=== PATIENT | female | born 1940 | race Caucasian/White ===

== ENCOUNTER 2016-09-07 19:08 | Emergency (ER) | payer OTHER ==
[~2016-09-07 19:08] MED LIST: ACCUPRIL20 MG PO; ALBUTEROL2.5 MG/3 M IN; AMARYL1 MG PO; ASPIRIN EC LOW81 MG PO; CATAPRES0.2 MG PO; CEFTIN500 MG PO; COUMADIN5 MG PO; DIFLUCAN100 MG PO; FLOVENT HFA110 MCG IN; ISOSORBIDE MONO30 MG PO; LANTUS SOL100 UNITS/ SC; LASIX40 MG PO; LEVAQUIN500 MG PO; LIPITOR80 MG PO; LISINOPRIL10 MG PO; METOPROLOL TAR100 MG PO; PRAMIPEXOLE D0.25 MG PO; PREDNISONE20 MG PO; PRILOSEC20 MG PO; QUINAPRIL HCL40 MG PO; SIMVASTATIN20 MG PO; TOPROL XL50 MG PO; TRAZODONE HCL50 MG PO
--- NOTE | 2016-09-07 20:01 | DIAGNOSTIC IMAGING REPORT ---
PROCEDURE: XR CHEST 2 VIEW INDICATION: FEVER TECHNIQUE: PA and lateral view. COMPARISON: Chest x-ray 02/14/2016 FINDINGS: Hyperinflation. Chronic stranding of the right lung base. Left lung is clear. Cardiovascular structures are normal. Bony thorax is unremarkable. IMPRESSION: 1. COPD 2. Mild right basilar scarring/atelectasis
--- NOTE | 2016-09-07 20:48 | ED NURSING NOTES ---
Clinical Report - Nurses [facility] [address] [place] [address] 09/07/2016 19:09 Patient: CORNELIA CARTER TRIAGE Triage time 1930 PM. Chief Complaint: SHORTNESS OF BREATH, DIFFICULTY BREATHING and WHEEZING and COUGH, FEVER and CHILLS. Alert. No acute distress. --20:20 Mahesh Pringle R.N. 19:37 09/07/16. BP: 218/98. HR: 113. RR: 30. O2 saturation: 91% on room air. Temp: 99.5 F (oral). Pain level now: cannot qualify. --20:20 Mahesh Pringle R.N. Weight: 99.7 kg estimated. Height/Length: 62 inches Estimated. BMI: 40.2. --23:14 Mahesh Pringle R.N. Medications Albuterol Sulfate Inhalation. Asmanex 120 Metered Doses Inhalation. Aspirin Oral (Tablet 81 mg) 1 tablet, daily. Atorvastatin Calcium Oral 20 mg, at bedtime. CloNIDine HCl Oral 0.2 mg, 2x a day. --20:20 Mahesh Pringle R.N. Glimepiride Oral (Tablet 4 mg) 1 tablet, qam. Isosorbide Mononitrate ER Oral (Tablet Extended Release 24 Hour 30 mg) 1 tablet, daily. Lantus Subcutaneous 30 units, 20 in the AM (and 20 in the AM). Lasix 40 mg qod. Lisinopril Oral (Tablet 20 mg) 1 tablet, at bedtime. Metoprolol Tartrate Oral 50 mg x 2 tabs, TID. Omeprazole Oral 30mg , daily. Oxygen 2L/nc at night. Pramipexole Dihydrochloride Oral 0.25 mg, 3x a day. TraZODone HCl Oral 50 mg, at bedtime. --20:20 Mahesh Pringle R.N. Allergies Bee Venom. Definite Severe(swelling) Calcium Channel Blockers. Keflex. Definite Severe(SOB, swelling) Norvasc. Definite Severe(swelling) PredniSONE. Definite Moderate(swelling) --20:20 Mahesh Pringle R.N. History Arrived by private vehicle. Historian: patient. Accompanied by family. This started yesterday. She has had fever. Treatment TOBACCO CLOTH RECLAIMER: None. SOCIAL HX: Smoker- current status unknown. FALL RISK ASSESSMENT: Fall risk assessment completed. No fall risk identified. NUTRITIONAL RISK ASSESSMENT: The nutritional risk assessment revealed no deficiencies. FUNCTIONAL ASSESSMENT: Functional assessment: no impairments noted. LEARNING NEEDS ASSESSMENT: The learning needs assessment revealed no barriers. SKIN INTEGRITY ASSESSMENT: Skin integrity risk assessment completed. No skin integrity risk identified. --20:20 Mahesh Pringle R.N. The patient has had a cough. --20:20 Mahesh Pringle R.N. PROBLEMS: Hypertensive Headache. Heart Disease. Hypomagnesemia. Dehydration. Hypotension. Angioedema. Oral Anticoagulation Therapy. Pneumonia. Pancreatitis. Immunizations. COPD - Chronic Obstructive Pulmonary Disease. Upper Extremity Pain. Diabetes Mellitus. Hypertension. Atrial Fibrillation. --20:20 Mahesh Pringle R.N. ADDITIONAL SURGERIES: Appendectomy. Hysterectomy. Partial hysterectomy. --20:20 Mahesh Pringle R.N. PHYSICAL ASSESSMENT To room via wheelchair. GENERAL / NEURO / PSYCH: Alert. Oriented X 4. Appears in no acute distress. HEENT: Mucous membranes are pink. RESPIRATORY: Severe respiratory distress. The patient can speak a few words at a time. Prominent clavicular and intercostal accessory muscle use. Prolonged expirations. Chest wall tenderness. Decreased breath sounds. Wheezing present. CVS: Normal sinus rhythm noted. Capillary refill less than 2 seconds. GI / : Abdomen soft and nontender. Bowel sounds within normal limits. SKIN: Skin is warm and dry. Normal skin turgor. --20:21 Mahesh Pringle R.N. NURSING PROGRESS NOTES 19:42 09/07/2016 Site #1 started via IV in the left forearm with an 18g angiocath; one attempt. Blood drawn: rainbow set and cultures x1. Labeled in the presence of the patient and sent to the lab. Saline lock flushed with 10 mL saline. --19:42 Mahesh Pringle R.N. 19:43 09/07/2016 Duoneb (Ipratropium-Albuterol) Neb TX Nebulizer 1 unit dose given. Given by the respiratory therapist. Allergies verified and confirmed 5 rights. --19:43 Mahesh Pringle R.N. 20:10 09/07/2016 SOLU-MEDROL (MethylPREDNISolone Sodium Succ) IVP 125 mg given over 2 minute(s) via site #1. Allergies verified and confirmed 5 rights. IV patency established. IV site checked: no pain, redness, or swelling. IV flushed thoroughly pre- and post-medication administration. IVP given by RN. --20:10 Mahesh Pringle R.N. Head of bed elevated. --20:21 Mahesh Pringle R.N. 20:43 09/07/2016 PHENERGAN-CODEINE (Promethazine-Codeine) PO Oral Suspension 10 mL given. Allergies verified and confirmed 5 rights. --20:43 Mahesh Pringle R.N. DISPOSITION / DISCHARGE <<STRICKEN ENTRY-- 23:08 09/07/16. BP: 178/88. HR: 102. RR: 22. O2 saturation: 92% on room air. Temp: 99 F (oral). Pain level now: 0/10. --23:10 Mitch Freed R.N. --END STRIKE>> Correction. --23:10 Mitch Freed R.N. 20:55 09/07/16. BP: 178/88. HR: 2. RR: 22. O2 saturation: 92% on room air. Temp: 99 F (oral). Pain level now: 0/10. --23:12 Mitch Freed R.N. Departure time: 2054. --23:12 Mitch Freed R.N. Locked/Released at 09/07/2016 23:14 by Mahesh Pringle R.N.
--- NOTE | 2016-09-07 20:48 | ED ORDER SUMMARY ---
..... Patient: CORNELIA CARTER OrderSheet [facility] VisitID: [id number] [place] [address] 75y, F Registration Date/Time: 09/07/2016 ORDER SHEET Weight: 99.7 kg (estimated) Allergies: Bee Venom, Calcium Channel Blockers, Keflex, Norvasc, PredniSONE GENERAL ORDERS: Chest 2V Urgent (19:28 09/07/2016 Ginette Caldwell) (Ack 19:29 [facility] (19:43 HOShaughnessy R.N.) Card Sorter (Continuous) (Respiratory Distress) (19:09/07/2016 Ginette Caldwell) (19:43 HOShaughnessy R.N.) CBC w Diff Urgent (19:28 09/07/2016 Ginette Caldwell) (Ack 19:29 [facility] (19:43 HOShaughnessy R.N.) BMP Urgent (19:09/07/2016 Ginette Caldwell) (Ack 19:29 [facility]) (19:43 HOShaughnessy R.N.) Pulse oximeter (19:28 09/07/2016 Ginette Caldwell) (19:43 HOShaughnessy R.N.) Rapid Influenza Screen (Nasal Pharyngeal) (mucus) Urgent (19:29 09/07/2016 Ginette Caldwell) (Ack 19:32 [facility]) (20:09 HOShaughnessy R.N.) RSV Rapid Screen (Nasal Pharyngeal) (mucus) Urgent (19:30 09/07/2016 Ginette Caldwell) (Ack 19:32 [facility]) (20:09 HOShaughnessy R.N.) PCT (Procalcitonin) Urgent (19:30 09/07/2016 Ginette Caldwell) (Ack 19:32 [facility]) (19:43 HOShaughnessy R.N.) Lactate, Serum Urgent (19:30 09/07/2016 Ginette Caldwell) (Ack 19:32 [facility]) (19:43 HOShaughnessy R.N.) MEDICATION ORDERS: DuoNeb Neb Tx 1 unit dose (NOW) (19:28 09/07/2016 Ginette Caldwell) (19:43 Leonides R.N.) Phenergan-Codeine PO 10 mL (HIGH ALERT MEDICATION, NOW) (20:38 09/07/2016 Ginette Caldwell) (20:43 Leonides R.N.) IV FLUIDS: Solu-MEDROL IV 125 mg (NOW) (19:28 09/07/2016 Ginette Caldwell) (20:10 HOScedric R.N.) IV Saline Lock (19:28 09/07/2016 Ginette Caldwell) (19:42 Leonides R.N.) ORDER SHEET NOTES: [Electronically signed by Mahesh Pringle R.N. (23:14 09/07/2016)] [Electronically signed by Kingsley Danielle Dr. (03:53 09/09/2016)] [Electronically locked/signed by Mahesh Pringle R.N. (23:14 09/07/2016)]
--- NOTE | 2016-09-07 20:48 | ED ORDER SUMMARY ---
..... Patient: CORNELIA CARTER OrderSheet [facility] VisitID: [id number] [place] [address] 75y, F Registration Date/Time: 09/07/2016 ORDER SHEET Weight: 99.7 kg (estimated) Allergies: Bee Venom, Calcium Channel Blockers, Keflex, Norvasc, PredniSONE GENERAL ORDERS: Chest 2V Urgent (19:28 09/07/2016 Ginette Caldwell) (Ack 19:[address] [facility] ER Tech1) (19:43 HOShaughnessy R.N.) Flight Attendant/Inflight Supervisor (Continuous) (Respiratory Distress) (19:09/07/2016 Ginette Caldwell) (19:43 HOShaughnessy R.N.) CBC w Diff Urgent (19:28 09/07/2016 Ginette Caldwell) (Ack 19:[address] [facility] ER Tech1) (19:43 HOShaughnessy R.N.) BMP Urgent (19:09/07/2016 Ginette Caldwell) (Ack 19:[address] [facility] ER Tech1) (19:43 HOShaughnessy R.N.) Pulse oximeter (19:28 09/07/2016 Ginette Caldwell) (19:43 HOShaughnessy R.N.) Rapid Influenza Screen (Nasal Pharyngeal) (mucus) Urgent (19:29 09/07/2016 Ginette Caldwell) (Ack 19:[address] [facility] ER Tech1) (20:09 HOShaughnessy R.N.) RSV Rapid Screen (Nasal Pharyngeal) (mucus) Urgent (19:30 09/07/2016 Ginette Caldwell) (Ack 19:[address] [facility] ER Tech1) (20:09 HOShaughnessy R.N.) PCT (Procalcitonin) Urgent (19:30 09/07/2016 Ginette Caldwell) (Ack 19:[address] [facility] ER Tech1) (19:43 HOShaughnessy R.N.) Lactate, Serum Urgent (19:30 09/07/2016 Ginette Caldwell) (Ack 19:[address] [facility] ER Tech1) (19:43 HOShaughnessy R.N.) MEDICATION ORDERS: DuoNeb Neb Tx 1 unit dose (NOW) (19:28 09/07/2016 Ginette Caldwell) (19:43 Leonides R.N.) Phenergan-Codeine PO 10 mL (HIGH ALERT MEDICATION, NOW) (20:38 09/07/2016 Ginette Caldwell) (20:43 Leonides R.N.) IV FLUIDS: Solu-MEDROL IV 125 mg (NOW) (19:28 09/07/2016 Ginette Caldwell) (20:10 HOScedric R.N.) IV Saline Lock (19:28 09/07/2016 Ginette Caldwell) (19:42 Leonides R.N.) ORDER SHEET NOTES: [Electronically signed by Mahesh Pringle R.N. (23:14 09/07/2016)] [Electronically signed by Kingsley Danielle Dr. (03:53 09/09/2016)] [Electronically locked/signed by Mahesh Pringle R.N. (23:14 09/07/2016)]
--- NOTE | 2016-09-07 20:48 | ED CLINICAL REPORT ---
Clinical Report - Physicians/Mid Levels [facility] [address] [place] [address] 09/07/2016 19:09 Patient: CORNELIA CARTER Arrived- By private vehicle. Historian- patient. HISTORY OF PRESENT ILLNESS Chief Complaint: COUGH. This started Past few days and is still present (worsening). It was abrupt in onset and has been constant but is not gone now. The illness is described as moderate. The patient has had sputum production, a cough, difficulty breathing, nasal congestion and fever. She has had chills, muscle aches and a nasal discharge. Additional history - The patient has had contact with a sick individual. Similar symptoms previously: None. Recent medical care: Not recently seen/assessed. REVIEW OF SYSTEMS All systems otherwise negative, except as recorded above. PAST HISTORY See nurses notes. Medications: Glimepiride Oral (Tablet 4 mg) 1 tablet, qam. Isosorbide Mononitrate ER Oral (Tablet Extended Release 24 Hour 30 mg) 1 tablet, daily. Lantus Subcutaneous 30 units, 20 in the AM (and 20 in the AM). Lasix 40 mg qod. Lisinopril Oral (Tablet 20 mg) 1 tablet, at bedtime. Metoprolol Tartrate Oral 50 mg x 2 tabs, TID. Omeprazole Oral 30mg , daily. Oxygen 2L/nc at night. Pramipexole Dihydrochloride Oral 0.25 mg, 3x a day. TraZODone HCl Oral 50 mg, at bedtime. Albuterol Sulfate Inhalation. Asmanex 120 Metered Doses Inhalation. Aspirin Oral (Tablet 81 mg) 1 tablet, daily. Atorvastatin Calcium Oral 20 mg, at bedtime. CloNIDine HCl Oral 0.2 mg, 2x a day. Allergies: Bee Venom. Definite Severe(swelling) Calcium Channel Blockers. Keflex. Definite Severe(SOB, swelling) Norvasc. Definite Severe(swelling) PredniSONE. Definite Moderate(swelling). SOCIAL HISTORY Former smoker. No alcohol use or drug use. No recent travel. Is a local resident. ADDITIONAL NOTES The nursing notes have been reviewed. PHYSICAL EXAM Vital Signs: 09/07/2016 19:37 BP: 218/98. HR: 113. RR: 30. O2 saturation: 91%. Temp: 99.5 F. Blood pressure normal. Oxygen saturation normal. Appearance: Alert. Patient in mild distress. (nontoxic). Eyes: Pupils equal, round and reactive to light. Eyes normal inspection. ENT: Ears normal. Nose normal. Pharynx normal. Uvula midline. Neck: Normal inspection. Neck supple. CVS: Normal heart rate and rhythm. Heart sounds normal. Pulses normal. Respiratory: No respiratory distress. Breath sounds normal. No rales, rhonchi, wheezes or stridor. (frequent coughing and signs of upper airway congestion). Abdomen: Soft and nontender. No organomegaly. Back: Normal inspection. Skin: Skin warm and dry. Normal skin color. No rash. Normal skin turgor. Extremities: Extremities exhibit normal ROM. No lower extremity edema. LABS, X-RAYS, AND EKG Chest X-ray: No acute disease. Normal lung markings present. No infiltrate. Views: PA and lateral. The X-rays were independently viewed by me and interpreted contemporaneously by me. Laboratory Tests: CBC w Diff: (DIDI: 09/07/2016 19:34) ( MsgRcvd 09/07/2016 20:01) Final results Test Result Flag Units (Reference) WHITE BLOOD COUNT 8.6 K/uL (4.5-11.5) RED BLOOD COUNT 4.04 M/uL (4.00-5.20) HEMOGLOBIN 10.7 L gm/dL (12.0-16.0) HEMATOCRIT 33.7 L % (36.0-46.0) MEAN CELL VOLUME 84 fL (80-100) MEAN CORPUSCULAR HGB 26 pg (26-34) MEAN CORPUSCULAR HGB CONC 32 g/dL (31-37) RED CELL DISTRIBUTION WIDTH 16.6 H % (11.6-14.8) PLATELET COUNT 173 K/uL (150-400) NEUTROPHIL % 77.9 H % (50-75) LYMPH % 14.6 L % (25-40) MONO % 6.9 % (3-14) EOSINOPHIL % 0.5 % (0-4) BASOPHIL % 0.1 % (0-2) Lactate, Serum: (DIDI: 09/07/2016 19:34) ( MsgRcvd 09/07/2016 20:19) Final results Test Result Flag Units (Reference) LACTIC ACID 1.2 mmol/L (0.4-2.0) [id number]: (DIDI: 09/07/2016 19:34) ( MsgRcvd 09/07/2016 20:27) Final results Test Result Flag Units (Reference) PROCALCITONIN <0.5 ng/mL (0-0.5) PCT Concentration: Interpretation : Risk/option for action PCT <=0.5 ng/mL : Systemic : Low risk forinfection(sepsis): progression to severeis not likely. : systemic infection.Local bacterial : CAUTION-PCT levelsinfection is : below 0.5 ng/mL do notpossible. : exclude an infection,because localizedinfections (withoutsystemic signs) may beassociated with suchlow levels. If PCT ismeasured very earlyafter a bacterialchallenge (usually <6hours), these valuesmay still be low. Inthis case PCT shouldbe re-assessed 6-24hours later. PCT >0.5 and : Systemic infection: Moderate risk for<= 2 ng/mL : (sepsis) is : progression to severepossible, but : systemic infection.other conditions : The patient should beare known to : closely monitoredelevate PCT. : both clinically andby re-assessing PCTwithin 6-24 hours. PCT > 2 ng/mL : Systemic infection: High risk for(sepsis) is likely: progression to severeunless other : systemic infection.causes are known. : PCT >= 10 ng/mL : Important systemic: High likelihood ofinflammatory : severe sepsis orresponse, almost : septic shock.exclusively due to:severe bacterial :sepsis or septic :shock. : BMP: (DIDI: 09/07/2016 19:34) ( MsgRcvd 09/07/2016 20:08) Final results Test Result Flag Units (Reference) GLUCOSE 216 H mg/dL (70-110) BUN 28 H mg/dL (7-18) CREATININE 1.6 H mg/dL (0.6-1.3) Estimated GFR 33.31 mL/min Estimated GFR- 40.37 mL/min Note: Persistent reduction over 3 months in eGFR<60 mL/min/1.73 m2 defines CKD. Patients with eGFR values>=60 mL/min/1.73 m2 may also have CKD if evidence ofpersistent proteinuria. Additional information may be foundat www.kidney.org. SODIUM 138 mmol/L (136-145) POTASSIUM 3.7 mmol/L (3.5-5.1) CHLORIDE 103 mmol/L (98-107) CARBON DIOXIDE 25 mmol/L (21-32) CALCIUM 8.5 mg/dL (8.5-10.1) RSV Rapid Screen: (DIDI: 09/07/2016 20:07) ( MsgRcvd 09/07/2016 20:32) Final results SPECIMEN DESCRIPTION: MUCUS Test Result Flag Units (Reference) RSV RAPID TEST DATE: 09/07/16 NEGATIVE SCREEN: NEGATIVE If Rapid RSV test is Negative but RSV is still suspected, a confirmatory RSV DFA can be requested. RAPID INFLUENZA SCREEN CALLED TO: Alex HASTINGS -- DATE: 09/07/16 INFLUENZA A: POSITIVE SCREEN FOR INFLUENZA A INFLUENZA B: NEGATIVE SCREEN FOR INFLUENZA B POSITIVE RAPID INFLUENZA "A". . PROGRESS AND PROCEDURES Course of Care: the patient is a pleasant 75-year-old female with past medical history significant for prior smoking history. Patient is coughing frequently and in a mild amount of distress. Patient appears nontoxic. Patient will be evaluated with laboratory studies as well as chest x-ray to evaluate for signs of pneumonia or any metabolic derangements from patient's illness. Viral swabs have also been ordered from triage. Patient is currently agreeable to the treatment plan. We'll provide patient with breathing treatment at this time asthe patient states that this is helped in the past. Breathing treatment as provided, patient reported significant improvement with her breathing. Viral swabs had returned positive for influenza type A. I discussion with patient in regards to symptoms. Patient reports that primarily she is concerned about the coughing. Reports that this is bothering her and she is unable to get any rest with the frequency of her cough. Have provided patient cough medication in the emergency department. Symptoms significantly improved after the medication was provided. Patient is stable for outpatient management. Patient has not been hypoxic here in the emergency department while on room air. Patient does not have any signs of consolidation on chest x-ray. No other abnormalities noted on patient's workup. Patient is a good outpatient candidate. Discussed with patient workup, diagnosis, home care, follow-up, and return precautions. All questions answered. The patient expressed understanding of these instructions and was agreeable to them. Disposition: Discharged. Condition: good. CLINICAL IMPRESSION Acute viral (influenza A) bronchitis. Acute exacerbation of COPD. INSTRUCTIONS Warnings: GENERAL WARNINGS: Return or contact your physician immediately if your condition worsens or changes unexpectedly, if not improving as expected, or if other problems arise. Specifically return if pain, vomiting, bleeding, breathing difficulty or fever. Your Current Medications: CONTINUE TAKING THE FOLLOWING MEDICATIONS: Albuterol Sulfate Inhalation. Asmanex 120 Metered Doses Inhalation. Aspirin Oral : Tablet 81 mg, 1 tablet daily. Atorvastatin Calcium Oral : 20 mg at bedtime. CloNIDine HCl Oral : 0.2 mg 2x a day. Glimepiride Oral : Tablet 4 mg, 1 tablet qam. Isosorbide Mononitrate ER Oral : Tablet Extended Release 24 Hour 30 mg, 1 tablet daily. Lantus Subcutaneous : 30 units 20 in the AM, and 20 in the AM. Lasix 40 mg qod*. Lisinopril Oral : Tablet 20 mg, 1 tablet at bedtime. Metoprolol Tartrate Oral : 50 mg x 2 tabs, TID. Omeprazole Oral : 30mg daily. Oxygen 2L/nc at night*. Pramipexole Dihydrochloride Oral : 0.25 mg 3x a day. TraZODone HCl Oral : 50 mg at bedtime. Prescription Medications: Albuterol HFA oral inhaler: inhale 1-2 puffs every 4 hours as needed for wheezing, difficulty breathing or shortness of breath. No refill. Tamiflu 75 mg: take 1 capsule orally every 12 hours for 5 days. No refill. Substitution is permissible. Phenergan w/ Codeine 10mg / 6.25mg per 5 mL: take 1-2 teaspoons every 6 hours as needed for cough. Dispense sixty (60) mL. No refill. Substitution is permissible. Prednisone 50 mg: take 1 orally every day for 5 days. Dispense five (5). No refills. Follow-up: Return to the emergency department as needed. Follow up with your doctor in two days. Reason for referral: recheck today's concerns. Summary of care provided to patient via paper. Screening today revealed the patient's blood pressure to be in the hypertensive range. Blood pressure screening was not performed during this visit because the patient has an active diagnosis of hypertension. The patient should follow up with a primary care provider for blood pressure management. Understanding of the discharge instructions verbalized by patient. (Electronically signed by Kingsley Danielle Dr. 09/09/2016 3:53)
--- NOTE | 2016-09-09 03:53 | ED MAR SUMMARY ---
..... Medication Administration Record [facility] [address] [place] [address] Patient: CORNELIA CARTER Visit ID: [id number] 75y, F Weight: 99.7 kg Height/Length: 62 in BMI: 40.2 ALLERGIES: Bee Venom, Calcium Channel Blockers, Keflex, Norvasc, PredniSONE Given 19:09/07/2016 Mahesh Pringle RLillian Medication Administered: DUONEB [NEB TX] (IPRATROPIUM-ALBUTEROL), Dose: 1 unit dose Nebulizer Neb TX. Medication Ordered: DuoNeb Neb Tx 1 unit dose (NOW). Given :09/07/2016 Mahesh Pringle RVincenzoNVincenzo Medication Administered: SOLU-MEDROL [IVP] (METHYLPREDNISOLONE SODIUM SUCC), Dose: 125 mg IVP over 2 minute(s), Site: #1 left forearm. Medication Ordered: Solu-MEDROL IV 125 mg (NOW). Given :09/07/2016 Mahesh Pringle, RVincenzoNVincenzo Medication Administered: PHENERGAN-CODEINE [PO] (PROMETHAZINE-CODEINE), Dose: 10 mL Oral Suspension PO. Medication Ordered: Phenergan-Codeine PO 10 mL (HIGH ALERT MEDICATION, NOW).
--- NOTE | 2016-09-09 03:53 | ED MED RECONCILIATION SUMMARY ---
Patient: CORNELIA CARTER Medication Reconciliation Report [facility] VisitID: [id number] [place] [address] 75y, F Registration Date/Time: 09/07/2016 Weight: 99.7 kg Height/Length: 62 in. BMI: 40.2 ALLERGIES: Bee Venom, Calcium Channel Blockers, Keflex, Norvasc, PredniSONE The patient's Home Medications are listed below: CONTINUE TAKING THE FOLLOWING MEDICATIONS: Albuterol Sulfate Inhalation Asmanex 120 Metered Doses Inhalation Aspirin Oral (81 mg) 1 tablet, daily Atorvastatin Calcium Oral 20 mg, at bedtime CloNIDine HCl Oral 0.2 mg, 2x a day Glimepiride Oral (4 mg) 1 tablet, qam Isosorbide Mononitrate ER Oral (30 mg) 1 tablet, daily Lantus Subcutaneous 30 units, 20 in the AM, and 20 in the AM Lasix 40 mg qod Lisinopril Oral (20 mg) 1 tablet, at bedtime Metoprolol Tartrate Oral 50 mg x 2 tabs, TID Omeprazole Oral 30mg , daily Oxygen 2L/nc at night Pramipexole Dihydrochloride Oral 0.25 mg, 3x a day TraZODone HCl Oral 50 mg, at bedtime The source(s) of the original Home Medication information: Not obtained. The following Medications were given to the patient in the Emergency Department: Duoneb [Neb Tx] Neb TX 1 unit dose, administered: 09/07/2016 7:43:00 PM SOLU-MEDROL [IVP] IVP 125 mg, administered: 09/07/2016 8:10:00 PM PHENERGAN-CODEINE [PO] PO 10 mL, administered: 09/07/2016 8:43:00 PM The following Medications were prescribed to the patient: Albuterol HFA oral inhaler: inhale 1-2 puffs every 4 hours as needed for wheezing, difficulty breathing or shortness of breath. No refill. -- Kingsley Danielle Dr. Tamiflu 75 mg: take 1 capsule orally every 12 hours for 5 days. No refill. Substitution is permissible. -- Kingsley Danielle Dr. Phenergan w/ Codeine 10mg / 6.25mg per 5 mL: take 1-2 teaspoons every 6 hours as needed for cough. Dispense sixty (60) mL. No refill. Substitution is permissible. -- Kingsley Danielle Dr. Prednisone 50 mg: take 1 orally every day for 5 days. Dispense five (5). No refills. -- Kingsley Danielle Dr.
--- NOTE | 2016-09-09 03:53 | ED DISCHARGE INSTRUCTIONS ---
Patient: CORNELIA CARTER General Instructions [facility] VisitID: [id number] [place] [address] 75y, F Registration Date/Time: 09/07/2016 Acute viral (influenza A) bronchitis. Acute exacerbation of COPD. INSTRUCTIONS Warnings: GENERAL WARNINGS: Return or contact your physician immediately if your condition worsens or changes unexpectedly, if not improving as expected, or if other problems arise. Specifically return if pain, vomiting, bleeding, breathing difficulty or fever. Your Current Medications: CONTINUE TAKING THE FOLLOWING MEDICATIONS: Albuterol Sulfate Inhalation. Asmanex 120 Metered Doses Inhalation. Aspirin Oral : Tablet 81 mg, 1 tablet daily. Atorvastatin Calcium Oral : 20 mg at bedtime. CloNIDine HCl Oral : 0.2 mg 2x a day. Glimepiride Oral : Tablet 4 mg, 1 tablet qam. Isosorbide Mononitrate ER Oral : Tablet Extended Release 24 Hour 30 mg, 1 tablet daily. Lantus Subcutaneous : 30 units 20 in the AM, and 20 in the AM. Lasix 40 mg qod*. Lisinopril Oral : Tablet 20 mg, 1 tablet at bedtime. Metoprolol Tartrate Oral : 50 mg x 2 tabs, TID. Omeprazole Oral : 30mg daily. Oxygen 2L/nc at night*. Pramipexole Dihydrochloride Oral : 0.25 mg 3x a day. TraZODone HCl Oral : 50 mg at bedtime. Prescription Medications: Albuterol HFA oral inhaler: inhale 1-2 puffs every 4 hours as needed for wheezing, difficulty breathing or shortness of breath. No refill. Tamiflu 75 mg: take 1 capsule orally every 12 hours for 5 days. No refill. Substitution is permissible. Phenergan w/ Codeine 10mg / 6.25mg per 5 mL: take 1-2 teaspoons every 6 hours as needed for cough. Dispense sixty (60) mL. No refill. Substitution is permissible. Prednisone 50 mg: take 1 orally every day for 5 days. Dispense five (5). No refills. Follow-up: Return to the emergency department as needed. Follow up with your doctor in two days. Reason for referral: recheck today's concerns. Summary of care provided to patient via paper. Screening today revealed the patient's blood pressure to be in the hypertensive range. Blood pressure screening was not performed during this visit because the patient has an active diagnosis of hypertension. The patient should follow up with a primary care provider for blood pressure management. Understanding of the discharge instructions verbalized by patient. ADDITIONAL INFORMATION Bronchitis, Viral (Adult: No Abx) You have a viral bronchitis. This illness is contagious during the first few days and is spread through the air by coughing and sneezing, or by direct contact (touching the sick person and then touching your own eyes, nose, or mouth). Most viral illnesses resolve within 10-14 days with rest and simple home remedies, although they may sometimes last for several weeks. Antibiotics will not kill a virus and are generally not prescribed for this condition. Home Care: If symptoms are severe, rest at home for the first 2-3 days. When resuming activity, don't let yourself become overly tired. Do not smoke and avoid the smoke of others. You may use acetaminophen (Tylenol) or ibuprofen (Motrin, Advil) to control fever or pain, unless another pain medicine was prescribed. [NOTE: If you have chronic liver or kidney disease or ever had a stomach ulcer or GI bleeding, talk with your doctor before using these medicines.] (Aspirin should never be used in anyone under 18 years of age who is ill with a fever. It may cause severe liver damage.) Your appetite may be poor so a light diet is fine. Avoid dehydration by drinking 6-8 glasses of fluids per day (water, sport drinks such as Gatorade, juices, tea, soup, etc.). Extra fluids will help loosen secretions in the nose and lung. Bgxc-[id number]-siboyvj cold medicines will not shorten the length of the illness, but may be helpful for cough (Robitussin DM), sore throat (Chloraseptic lozenges or spray), nasal and sinus congestion (Actifed or Sudafed). [NOTE: Do not use decongestants if you have high blood pressure.] Follow Up with your doctor or as directed by our staff if you are not improving over the next week. NOTE: If you are age 65 or older, or if you have chronic asthma or COPD, we recommend a PNEUMOCOCCAL VACCINATION every five years and a yearly INFLUENZAVACCINATION (FLU-SHOT) every . Ask your doctor about this. If you had an X-ray, a radiologist will review it. You will be notified of any new findings that may affect your care.] Get Prompt Medical Attention if any of the following occur: Fever over 100.4F (38.0C) for more than three days Trouble breathing, wheezing or pain with breathing Coughing up blood or increased amounts of colored sputum Weakness, drowsiness, headache, facial pain, ear pain or a stiff neck COPD Flare Both emphysema and chronic bronchitis are forms of chronic obstructive pulmonary disease (COPD). It is most often caused by many years of smoking tobacco. Many things can make your lung disease suddenly get worse. These causes include the common cold, pneumonia, acute bronchitis, missing doses of your regular breathing medicines, or being around smoke, dust, or other air pollutants. A COPD flare may last 7 to 14 days. Your doctor may prescribe medicineto relax your airways and prevent wheezing. Your doctor may also prescribe antibiotics if he or she thinks you havea bacterial infection. Prednisone can helpease inflammation in a severe attack. Home care Here are things you can do at home: Drink lots of water or other fluids (at least 10 glasses a day) during an attack. This will loosen lung secretions and make it easier to breathe. If you have heart or kidney disease, check with your doctor before you drink extra amounts of fluids. Take prescribed medicine exactly at the times advised. If you have a hand-held inhaler or aerosol breathing medicine, don't use it more than once every 4 hours, unless your doctor tells you to. If you were givenan antibiotic or prednisone, take all of the medicine even if you are feeling better after a few days. Don't smoke. Avoid being aroundthe smoke of others. If you were given an inhaler, use it exactly as directed. If you need to use it more often than prescribed, your condition may be getting worse. Call your doctor. Follow-up care Follow up with your health care provider.If you are 65 or older or have chronic asthma or COPD, you should get a single dose of the pneumococcal vaccine and aflu shot each year. You may need a second dose of the pneumococcal vaccine if you had the first dose at a younger age. Your health care provider will let you know if you need a second dose. For all other people, the usual dose for the pneumococcal vaccine is 1 or 2 shots. Yourprovider can discuss this with you. When to seek medical care Get prompt medical attention ifany of these occur: Increased wheezing or shortness of breath Need to use your inhalers more often than usual without relief Fever of 100.4F(38C) or higher, or as directed by your health care provider Coughing up lots of dark-colored or bloody sputum (mucus) Chest pain with each breath You do not start to improve within 24 hours Albuterol Sulfate Pressurized inhalation, suspension What is this medicine? ALBUTEROL (al BYOO ter ole) is a bronchodilator. It helps open up the airways in your lungs to make it easier to breathe. This medicine is used to treat and to prevent bronchospasm. How should I use this medicine? This medicine is for inhalation through the mouth. Follow the directions on your prescription label. Take your medicine at regular intervals. Do not use more often than directed. Make sure that you are using your inhaler correctly. Ask you doctor or health care provider if you have any questions. Talk to your police dispatcher regarding the use of this medicine in children. Special care may be needed. What side effects may I notice from receiving this medicine? Side effects that you should report to your doctor or health family member caretaker as soon as possible: allergic reactions like skin rash, itching or hives, swelling of the face, lips, or tongue breathing problems chest pain feeling faint or lightheaded, falls high blood pressure irregular heartbeat fever muscle cramps or weakness pain, tingling, numbness in the hands or feet vomiting Side effects that usually do not require medical attention (report to your doctor or health family member caretaker if they continue or are bothersome): cough difficulty sleeping headache nervousness or trembling stomach upset stuffy or runny nose throat irritation unusual taste What may interact with this medicine? anti-infectives like chloroquine and pentamidine caffeine cisapride diuretics medicines for colds medicines for depression or for emotional or psychotic conditions medicines for weight loss including some herbal products methadone some antibiotics like clarithromycin, erythromycin, levofloxacin, and linezolid some heart medicines steroid hormones like dexamethasone, cortisone, hydrocortisone theophylline thyroid hormones What if I miss a dose? If you miss a dose, use it as soon as you can. If it is almost time for your next dose, use only that dose. Do not use double or extra doses. Where should I keep my medicine? Keep out of the reach of children. Store at room temperature between 15 and 30 degrees C (59 and 86 degrees F). The contents are under pressure and may burst when exposed to heat or flame. Do not freeze. This medicine does not work as well if it is too cold. Throw away any unused medicine after the expiration date. Inhalers need to be thrown away after the labeled number of puffs have been used or by the expiration date; whichever comes first. Ventolin HFA should be thrown away 12 months after removing from foil pouch. Check the instructions that come with your medicine. What should I tell my health care provider before I take this medicine? They need to know if you have any of the following conditions: diabetes heart disease or irregular heartbeat high blood pressure pheochromocytoma seizures thyroid disease an unusual or allergic reaction to albuterol, levalbuterol, sulfites, other medicines, foods, dyes, or preservatives or trying to get breast-feeding What should I watch for while using this medicine? Tell your doctor or health family member caretaker if your symptoms do not improve. Do not use extra albuterol. If your asthma or bronchitis gets worse while you are using this medicine, call your doctor right away. If your mouth gets dry try chewing sugarless gum or sucking hard candy. Drink water as directed. Oseltamivir Phosphate Oral capsule What is this medicine? OSELTAMIVIR (os el GUTIERREZ i vir) is an antiviral medicine. It is used to prevent and to treat some kinds of influenza or the flu. It will not work for colds or other viral infections. How should I use this medicine? Take this medicine by mouth with a glass of water. Follow the directions on the prescription label. Start this medicine at the first sign of flu symptoms. You can take it with or without food. If it upsets your stomach, take it with food. Take your medicine at regular intervals. Do not take your medicine more often than directed. Take all of your medicine as directed even if you think you are better. Do not skip doses or stop your medicine early. Talk to your police dispatcher regarding the use of this medicine in children. While this drug may be prescribed for children as young as 14 days for selected conditions, precautions do apply. What side effects may I notice from receiving this medicine? Side effects that you should report to your doctor or health family member caretaker as soon as possible: allergic reactions like skin rash, itching or hives, swelling of the face, lips, or tongue anxiety, confusion, unusual behavior breathing problems hallucination, loss of contact with reality redness, blistering, peeling or loosening of the skin, including inside the mouth seizures Side effects that usually do not require medical attention (report to your doctor or health family member caretaker if they continue or are bothersome): cough diarrhea dizziness headache nausea, vomiting stomach pain What may interact with this medicine? Interactions are not expected. What if I miss a dose? If you miss a dose, take it as soon as you remember. If it is almost time for your next dose (within 2 hours), take only that dose. Do not take double or extra doses. Where should I keep my medicine? Keep out of the reach of children. Store at room temperature between 15 and 30 degrees C (59 and 86 degrees F). Throw away any unused medicine after the expiration date. What should I tell my health care provider before I take this medicine? They need to know if you have any of the following conditions: heart disease immune system problems kidney disease liver disease lung disease an unusual or allergic reaction to oseltamivir, other medicines, foods, dyes, or preservatives or trying to get breast-feeding What should I watch for while using this medicine? Visit your doctor or health family member caretaker for regular check ups. Tell your doctor if your symptoms do not start to get better or if they get worse. If you have the flu, you may be at an increased risk of developing seizures, confusion, or abnormal behavior. This occurs early in the illness, and more frequently in children and teens. These events are not common, but may result in accidental injury to the patient. Families and caregivers of patients should watch for signs of unusual behavior and contact a doctor or health family member caretaker right away if the patient shows signs of unusual behavior. This medicine is not a substitute for the flu shot. Talk to your doctor each year about an annual flu shot. Prednisone Oral tablet What is this medicine? PREDNISONE (PRED ni sone) is a corticosteroid. It is commonly used to treat inflammation of the skin, joints, lungs, and other organs. Common conditions treated include asthma, allergies, and arthritis. It is also used for other conditions, such as blood disorders and diseases of the adrenal glands. How should I use this medicine? Take this medicine by mouth with a glass of water. Follow the directions on the prescription label. Take this medicine with food. If you are taking this medicine once a day, take it in the morning. Do not take more medicine than you are told to take. Do not suddenly stop taking your medicine because you may develop a severe reaction. Your doctor will tell you how much medicine to take. If your doctor wants you to stop the medicine, the dose may be slowly lowered over time to avoid any side effects. Talk to your police dispatcher regarding the use of this medicine in children. Special care may be needed. What side effects may I notice from receiving this medicine? Side effects that you should report to your doctor or health family member caretaker as soon as possible: allergic reactions like skin rash, itching or hives, swelling of the face, lips, or tongue changes in emotions or moods changes in vision depressed mood eye pain fever or chills, cough, sore throat, pain or difficulty passing urine increased thirst swelling of ankles, feet Side effects that usually do not require medical attention (report to your doctor or health family member caretaker if they continue or are bothersome): confusion, excitement, restlessness headache nausea, vomiting skin problems, acne, thin and shiny skin trouble sleeping weight gain What may interact with this medicine? Do not take this medicine with any of the following medications: metyrapone mifepristone This medicine may also interact with the following medications: aminoglutethimide amphotericin B aspirin and aspirin-like medicines barbiturates certain medicines for diabetes, like glipizide or glyburide cholestyramine cholinesterase inhibitors cyclosporine digoxin diuretics ephedrine female hormones, like estrogens and control pills isoniazid ketoconazole NSAIDS, medicines for pain and inflammation, like ibuprofen or naproxen phenytoin rifampin toxoids vaccines warfarin What if I miss a dose? If you miss a dose, take it as soon as you can. If it is almost time for your next dose, talk to your doctor or health family member caretaker. You may need to miss a dose or take an extra dose. Do not take double or extra doses without advice. Where should I keep my medicine? Keep out of the reach of children. Store at room temperature between 15 and 30 degrees C (59 and 86 degrees F). Protect from light. Keep container tightly closed. Throw away any unused medicine after the expiration date. What should I tell my health care provider before I take this medicine? They need to know if you have any of these conditions: Payam's syndrome diabetes glaucoma heart disease high blood pressure infection (especially a virus infection such as chickenpox, cold sores, or herpes) kidney disease liver disease mental illness myasthenia gravis osteoporosis seizures stomach or intestine problems thyroid disease an unusual or allergic reaction to lactose, prednisone, other medicines, foods, dyes, or preservatives or trying to get breast-feeding What should I watch for while using this medicine? Visit your doctor or health family member caretaker for regular checks on your progress. If you are taking this medicine over a prolonged period, carry an identification card with your name and address, the type and dose of your medicine, and your doctor's name and address. This medicine may increase your risk of getting an infection. Tell your doctor or health family member caretaker if you are around anyone with measles or chickenpox, or if you develop sores or blisters that do not heal properly. If you are going to have surgery, tell your doctor or health family member caretaker that you have taken this medicine within the last twelve months. Ask your doctor or health family member caretaker about your diet. You may need to lower the amount of salt you eat. This medicine may affect blood sugar levels. If you have diabetes, check with your doctor or health family member caretaker before you change your diet or the dose of your diabetic medicine. You have been given the following additional information: Bronchitis, No Antibiotic (Adult) COPD Flare Albuterol Sulfate Pressurized inhalation, suspension Oseltamivir Phosphate Oral capsule Prednisone Oral tablet (Electronically signed by Kingsley Danielle Dr. 09/09/2016 3:53)
--- NOTE | 2016-09-09 03:53 | ED MED RECONCILIATION SUMMARY ---
Patient: CORNELIA CARTER Medication Reconciliation Report [facility] VisitID: [id number] [place] [address] 75y, F Registration Date/Time: 09/07/2016 Weight: 99.7 kg Height/Length: 62 in. BMI: 40.2 ALLERGIES: Bee Venom, Calcium Channel Blockers, Keflex, Norvasc, PredniSONE The patient's Home Medications are listed below: CONTINUE TAKING THE FOLLOWING MEDICATIONS: Albuterol Sulfate Inhalation Asmanex 120 Metered Doses Inhalation Aspirin Oral (81 mg) 1 tablet, daily Atorvastatin Calcium Oral 20 mg, at bedtime CloNIDine HCl Oral 0.2 mg, 2x a day Glimepiride Oral (4 mg) 1 tablet, qam Isosorbide Mononitrate ER Oral (30 mg) 1 tablet, daily Lantus Subcutaneous 30 units, 20 in the AM, and 20 in the AM Lasix 40 mg qod Lisinopril Oral (20 mg) 1 tablet, at bedtime Metoprolol Tartrate Oral 50 mg x 2 tabs, TID Omeprazole Oral 30mg , daily Oxygen 2L/nc at night Pramipexole Dihydrochloride Oral 0.25 mg, 3x a day TraZODone HCl Oral 50 mg, at bedtime The source(s) of the original Home Medication information: Not obtained. The following Medications were given to the patient in the Emergency Department: Duoneb [Neb Tx] Neb TX 1 unit dose, administered: 09/07/2016 7:43:00 PM SOLU-MEDROL [IVP] IVP 125 mg, administered: 09/07/2016 8:10:00 PM PHENERGAN-CODEINE [PO] PO 10 mL, administered: 09/07/2016 8:43:00 PM The following Medications were prescribed to the patient: Albuterol HFA oral inhaler: inhale 1-2 puffs every 4 hours as needed for wheezing, difficulty breathing or shortness of breath. No refill. -- Kingsley Danielle Dr. Tamiflu 75 mg: take 1 capsule orally every 12 hours for 5 days. No refill. Substitution is permissible. -- Kingsley Danielle Dr. Phenergan w/ Codeine 10mg / 6.25mg per 5 mL: take 1-2 teaspoons every 6 hours as needed for cough. Dispense sixty (60) mL. No refill. Substitution is permissible. -- Kingsley Danielle Dr. Prednisone 50 mg: take 1 orally every day for 5 days. Dispense five (5). No refills. -- Kingsley Danielle Dr.
--- NOTE | 2016-09-09 03:53 | ED MAR SUMMARY ---
..... Medication Administration Record [facility] [address] [place] [address] Patient: CORNELIA CARTER Visit ID: [id number] 75y, F Weight: 99.7 kg Height/Length: 62 in BMI: 40.2 ALLERGIES: Bee Venom, Calcium Channel Blockers, Keflex, Norvasc, PredniSONE Given 19:09/07/2016 Mahesh Pringle RLillian Medication Administered: DUONEB [NEB TX] (IPRATROPIUM-ALBUTEROL), Dose: 1 unit dose Nebulizer Neb TX. Medication Ordered: DuoNeb Neb Tx 1 unit dose (NOW). Given :09/07/2016 Mahesh Pringle RVincenzoNVincenzo Medication Administered: SOLU-MEDROL [IVP] (METHYLPREDNISOLONE SODIUM SUCC), Dose: 125 mg IVP over 2 minute(s), Site: #1 left forearm. Medication Ordered: Solu-MEDROL IV 125 mg (NOW). Given :09/07/2016 Mahesh Pringle, RVincenzoNVincenzo Medication Administered: PHENERGAN-CODEINE [PO] (PROMETHAZINE-CODEINE), Dose: 10 mL Oral Suspension PO. Medication Ordered: Phenergan-Codeine PO 10 mL (HIGH ALERT MEDICATION, NOW).
== END 2016-09-07 21:00 | disposition home or self-care (01) ==
LOC: ED SRH 19:08
DX: J10.1 Influenza due to other identified influenza virus with other respiratory manifestations (principal); J44.1 Chronic obstructive pulmonary disease with (acute) exacerbation; I10 Essential (primary) hypertension; I51.9 Heart disease, unspecified; E11.9 Type 2 diabetes mellitus without complications; E78.00 Pure hypercholesterolemia, unspecified; Z79.82 Long term (current) use of aspirin; Z79.51 Long term (current) use of inhaled steroids; Z79.84 Long term (current) use of oral hypoglycemic drugs; Z87.891 Personal history of nicotine dependence
CPT/HCPCS: 90047; 91400; 91576; 92031; 93004; 95059

== ENCOUNTER 2016-09-09 20:45 | Emergency (ER) | payer OTHER ==
--- NOTE | 2016-09-09 22:48 | DIAGNOSTIC IMAGING REPORT ---
PROCEDURE: XR CHEST 1 VIEW INDICATION: SHORTNESS OF BREATH, initial encounter TECHNIQUE: Portable AP view 10:21 a.m. COMPARISON: Chest x-ray 09/07/2016 FINDINGS: Hyperinflation with minor right basilar scarring. Borderline cardiomegaly. Mediastinum and pulmonary vessels are normal Thorax is normal. IMPRESSION: 1. Borderline cardiomegaly 2. COPD with minor right basilar scarring
--- NOTE | 2016-09-10 02:27 | ED NURSING NOTES ---
Clinical Report - Nurses [facility] [address] [place] [address] 09/09/2016 20:44 Patient: CORNELIA CARTER TRIAGE Triage time 20:53. Acuity: LEVEL 3. Chief Complaint: COUGH and (sob). ( Pt stated she was 140, but looks around 200.). --20:58 Jeff Delgado R.N. 20:53 09/09/16. BP: 146/89. HR: 80. RR: 26. O2 saturation: 95%. Pain level now 5/10. --20:58 Jeff Delgado R.N. Weight: 63.5 kg stated. Height/Length: 64 inches Per Patient. BMI: 24. --20:57 Jeff Delgado R.N. Medications Albuterol Sulfate Inhalation. Asmanex 120 Metered Doses Inhalation. Aspirin Oral (Tablet 81 mg) 1 tablet, daily. Atorvastatin Calcium Oral 20 mg, at bedtime. CloNIDine HCl Oral 0.2 mg, 2x a day. Glimepiride Oral (Tablet 4 mg) 1 tablet, qam. Isosorbide Mononitrate ER Oral (Tablet Extended Release 24 Hour 30 mg) 1 tablet, daily. --20:55 Jeff Delgado R.N. Lantus Subcutaneous 30 units, 20 in the AM (and 20 in the AM). Lasix 40 mg qod. Lisinopril Oral (Tablet 20 mg) 1 tablet, at bedtime. Metoprolol Tartrate Oral 50 mg x 2 tabs, TID. Omeprazole Oral 30mg , daily. Oxygen 2L/nc at night. Pramipexole Dihydrochloride Oral 0.25 mg, 3x a day. TraZODone HCl Oral 50 mg, at bedtime. --20:55 Jeff Delgado R.N. Allergies Bee Venom. Definite Severe(swelling) Calcium Channel Blockers. Keflex. Definite Severe(SOB, swelling) Norvasc. Definite Severe(swelling) PredniSONE. Definite Moderate(swelling) --20:55 Jeff Delgado R.N. History Arrived by private vehicle. Historian: patient. Unaccompanied. ( Pt was seen here yesterday, per pt and was diagnosed with the flu. Pt was given a 5 day supply of antibiotics. Pt was suppose to have home oxygen, but is in the process of moving.). She has had chest congestion and difficulty breathing. ( Pt is having pain on the right side of the lower ribs, due to the coughing.). Treatment TOBACCO CLASSER: None. PAST MEDICAL HX: Immunizations: up-to-date. Denies current . SOCIAL HX: Former smoker. No alcohol use or drug use. --20:58 Jeff Delgado R.N. PROBLEMS: Bronchitis. Hypertensive Headache. Heart Disease. Hypomagnesemia. Dehydration. Hypotension. Angioedema. Oral Anticoagulation Therapy. Pneumonia. Pancreatitis. Immunizations. COPD - Chronic Obstructive Pulmonary Disease. Upper Extremity Pain. Diabetes Mellitus. Hypertension. Atrial Fibrillation. --20:56 Jeff Delgado R.N. Interventions ID band on patient. To treatment room. --20:58 Jeff Delgado R.N. PHYSICAL ASSESSMENT GENERAL / NEURO / PSYCH: Alert. Oriented X 4. Appears anxious. HEENT: Pupils equal, round and reactive to light. Ears within normal limits. Nares within normal limits. Mouth within normal limits upon inspection. Pharynx within normal limits. Voice within normal limits. Mucous membranes are pink. RESPIRATORY: Moderate respiratory distress. The patient can speak in full sentences. Decreased breath sounds right lung. Nonproductive cough. ( pt is 95% on room air.). CVS: Normal sinus rhythm noted. Capillary refill less than 2 seconds. SKIN: Skin is warm and dry. Normal skin turgor. --20:59 Jeff Delgado R.N. NURSING PROGRESS NOTES The plan of care for this patient has been created. Pulse oximeter and NIBP monitor placed on patient. Patient gowned. Head of bed elevated. --20:59 Jeff Delgado R.N. 22:12 09/09/2016 Site #1 started via IV in the right hand with an 20g angiocath, with aseptic technique and good blood return; one attempt. Blood drawn: rainbow set. Labeled in the presence of the patient and sent to the lab. Saline lock flushed with 10 mL saline. --22:12 Jeff Delgado R.N. 22:02 09/09/16. BP: 95/58. HR: 78. RR: 20. O2 saturation: 97%. Pain level now 0/10. --22:12 Jeff Delgado R.N. case monitor, pulse oximeter and NIBP monitor placed on patient; patient monitor- Lead II; monitor alarms on. --22:12 Jeff Delgado R.N. 22:13 09/09/2016 SOLU-MEDROL (MethylPREDNISolone Sodium Succ) IVP 125 mg given over 1 minute(s) via site #1. Allergies verified and confirmed 5 rights. IV patency established. IV site checked: no pain, redness, or swelling. IV flushed thoroughly pre- and post-medication administration. IVP given by RN. --22:13 Jeff Delgado R.N. EKG time: (2204). EKG was ordered, performed by a tech and shown to the ED physician. --22:15 Romeo Rodriguez, ER Flight Engineer Instructor 22:23 09/09/2016 Albuterol Neb TX. Given by the respiratory therapist. Allergies verified and confirmed 5 rights. --22:23 Jeff Delgado R.N. ( Granddaughter was called in to go over the pt's medications. MD stated she does not know how to talk her prescribed meds and wants to show family the right way.). --22:27 Jeff Delgado R.N. <<STRICKEN ENTRY-- 22:34 09/09/16. Care transferred and report received (from LAWANDA Johnson). --22:34 Miriam Reyes R.N. --END STRIKE>> Charted On Wrong Patient --23:25 Miriam Reyes R.N. ( Daughter at bedside and the MD did talk to the daughter about her medications.). --23:27 Jeff Delgado R.N. BS 44. Critical value read back. Verified lab result and patient ID. --23:28 Jeff Delgado R.N. ( MD was in the room and told about the BS of 44. Pt was given a snack.). --23:33 Jeff Delgado R.N. 23:40 09/09/2016 D-50 IVP 25 gm given over 2 minute(s) via site #1. Allergies verified and confirmed 5 rights. IV patency established. IV site checked: no pain, redness, or swelling. IV flushed thoroughly pre- and post-medication administration. IVP given by RN. --23:40 Jeff Delgado R.N. 23:40 09/09/2016 Lasix IVP 20 mg given over 2 minute(s) via site #1. Allergies verified and confirmed 5 rights. IV patency established. IV site checked: no pain, redness, or swelling. IV flushed thoroughly pre- and post-medication administration. IVP given by RN. --23:40 Jeff Delgado R.N. ( Pt took herself of the monitor and does not want her vs taken again. She is ready to leave. Daughter gave verbal understanding of her medications. Pt is no longer having sob and is eating a sandwich.). --23:47 Jeff Delgado R.N. ( Pt refused the CTA, informed MD.). --00:04 Jeff Delgado R.N. ( 1248: Finger stick Glucose 161 mg/dL). --00:58 Enma Heck 01:01 09/10/16. BP: 150/74. HR: 90. RR: 20. O2 saturation: 93%. Pain level now 0/10. --01:02 Jeff Delgado R.N. 01:10 09/10/2016 Lovenox (Enoxaparin Sodium) Subcutaneous 60 mg given. Given in the left abdomen. Allergies verified and confirmed 5 rights. --01:10 Jeff Delgado R.N. DISPOSITION / DISCHARGE Departure time: 02:25. Condition at departure: improved. ( Report was given to Cira Barillas RN. Pt was transported with [facility] by ALS unit. Pt was going to room 2016 CCU bed. Pt was placed on the patient monitor.). The patient left the Emergency Department via ambulance and ([place]). Transferred to [facility]. --02:26 Jeff Delgado R.N. ( 20g IV was left in place.). --02:26 Jeff Delgado R.N. Locked/Released at 09/10/2016 2:26 by Jeff Delgado R.N.
--- NOTE | 2016-09-10 02:27 | ED CLINICAL REPORT ---
Clinical Report - Physicians/Mid Levels [facility] [address] [place] [address] 09/09/2016 20:44 Patient: CORNELIA CARTER Time Seen: 21:41. Arrived- By private vehicle. Historian- patient. HISTORY OF PRESENT ILLNESS Chief Complaint: DYSPNEA and almost collapsed. ("So out out of breath that I almost fell" at 6 pm pt had a near syncopal episode associated with sudden worsening of pre existing SOB. He was seen here several days ago and had influenza A and was treated with Albuterol and Tamiflu. She is moving, does not have her home 02 and is using her steroid inhaler as her rescue inhaler.). Is now gone. It was abrupt in onset. The dyspnea is severe and is worsened by walking and being in a supine position. The patient has had sputum production, a cough, wheezing, dyspnea on exertion and orthopnea. No fever, chills, calf pain or foot swelling. She has had chest discomfort (right sided mild). (On home 02 at night. Not available Using steroid as rescue inhaler.). Similar symptoms previously: Several times. Recent medical care: The patient was seen recently by a health care provider. ( 09/07 ED Tamiflu and Albuterol). REVIEW OF SYSTEMS The patient has had muscle aches and a sore throat and mild headache. No eye irritation, nausea, vomiting or abdominal pain or pain. No diarrhea, black stools or stools or difficulty with urination or urination. No excessive urination, skin rash, chills, fever or sore throat. No palpitations or bloody stools. PAST HISTORY PCP: Paul "[facility]. PCP: Dr. Miller Angioedema. Oral Anticoagulation Therapy. Pneumonia. Pancreatitis. COPD - Chronic Obstructive Pulmonary Disease. Upper Extremity Pain. Diabetes Mellitus. Hypertension. Atrial Fibrillation (paroxysmal). Hyperlipidemia Diverticulosis. Anemia GERD with erosive gastritis. Schatziki's ring Chronic kidney disease, stage 3 Pulmonary hypertension SURGERIES: Appendectomy. Hysterectomy. Partial hysterectomy. SOCIAL HISTORY Former smoker. ADDITIONAL NOTES The nursing notes have been reviewed. PHYSICAL EXAM Vital Signs: 09/09/2016 22:02 BP: 95/58. HR: 78. RR: 20. O2 saturation: 97%. 09/09/2016 20:53 BP: 146/89. HR: 80. RR: 26. O2 saturation: 95%. Appearance: Alert. No acute distress. Eyes: Pupils equal, round and reactive to light. ENT: Pharynx normal. Neck: No jugular venous distention. CVS: Normal heart rate and rhythm. Heart sounds normal. Respiratory: Mildly decreased air movement bilaterally. No prolonged expiration, wheezes, rales or rhonchi. (Surprisingly clear). Abdomen: Soft and nontender. Skin: Skin warm. Normal skin color. Extremities: Extremities exhibit normal ROM. No lower extremity edema. LABS, X-RAYS, AND EKG EKG: Rate: 78. Normal P waves. Normal ANA. Normal QRS complex. Normal axis. Normal ST and T waves and QT. Chest X-ray: (PROCEDURE: XR CHEST 1 VIEW INDICATION: SHORTNESS OF BREATH, initial encounter TECHNIQUE: Portable AP view 10:21 a.m. COMPARISON: Chest x-ray 09/07/2016 FINDINGS: Hyperinflation with minor right basilar scarring. Borderline cardiomegaly. Mediastinum and pulmonary vessels are normal Thorax is normal. IMPRESSION: 1. Borderline cardiomegaly 2. COPD with minor right basilar scarring Electronically Final signed by:Jesús Kahn MD 09/09/2016 10:47:53 PM). The X-rays were interpreted by the radiologist and contemporaneously by me. Laboratory Tests: PT with INR: (DIDI: 09/10/2016 00:01) ( MsgRcvd 09/10/2016 00:49) Final results Test Result Flag Units (Reference) INR 1.0 (0.8-1.2) Low Intensity Therapy: INR 1.5-2.0 PT range 18.5-23.1Mod.Intensity Therapy: INR 2.0-3.0 PT range 23.1-31.5High Intensity Therapy: INR 2.5-3.5 PT range 27.4-35.5High Intensity Therapy 2: INR 3.0-4.0 PT range 31.5-39.3 CBC w Diff: (DIDI: 09/09/2016 22:15) ( [facility] 09/09/[facility] 22:29) Final results Test Result Flag Units (Reference) WHITE BLOOD COUNT 10.3 K/uL (4.5-11.5) RED BLOOD COUNT 4.22 M/uL (4.00-5.20) HEMOGLOBIN 11.1 L gm/dL (12.0-16.0) HEMATOCRIT 35.0 L % (36.0-46.0) MEAN CELL VOLUME 83 fL (80-100) MEAN CORPUSCULAR HGB 26 pg (26-34) MEAN CORPUSCULAR HGB CONC 32 g/dL (31-37) RED CELL DISTRIBUTION WIDTH 16.2 H % (11.6-14.8) PLATELET COUNT 221 K/uL (150-400) NEUTROPHIL % 68.8 % (50-75) LYMPH % 21.9 L % (25-40) MONO % 8.5 % (3-14) EOSINOPHIL % 0.7 % (0-4) BASOPHIL % 0.1 % (0-2) [id number]: (DIDI: 09/09/2016 22:15) ( [facility] 09/09/2016 22:37) Final results Test Result Flag Units (Reference) D-DIMER QUANTITATIVE 0.81 H ug/mLFEU (0.27-0.52) The primary value of this quantitative assay relates toits negative predictive value (i.e. exclusion) of pulmonaryembolism/deep vein thrombosis/DIC.Elevated levels of d-dimer may also occur with:, age, cancer, inflammation, liver disease,post-op, infection, hematoma, coronary disease, peripheralarteriopathy, bleeding disorders and thrombolytic treatment.Results should be correlated with other clinical andradiological data.Testing Methodology: Latex Immunoassay %CKMB: (DIDI: 09/09/2016 22:15) ( [facility] 09/09/2016 23:55) Final results Test Result Flag Units (Reference) %CKMB 5.6 H % (0.0-4.0) BNP: (DIDI: 09/09/2016 22:15) ( DcgRcvd 09/09/2016 22:51) Final results Test Result Flag Units (Reference) B-TYPE NATRIURETIC PEPTIDE 420 H pg/ml (5-100) CHEM 13 PANEL: (DIDI: 09/09/2016 22:15) ( MsgRcvd 09/09/2016 23:29) Final results Test Result Flag Units (Reference) CPK 310 H U/L (24-260) %CKMB 1.9 % (0.0-4.0) TROPONIN I <0.05 ng/mL (0.00-1.5) TROPONIN REFERENCE RANGE:<0.1 NEGATIVE0.1-1.5 INDETERMINANT>1.5 POSITIVE GLUCOSE 44 L mg/dL (70-110) CRITICAL RESULTS CALLEDCalled to LAWANDA RAYMUNDO, 09/09/16 [id number] 2 patient identifiers used? YWas the result read back? BUN 55 H mg/dL (7-18) CREATININE 2.1 H mg/dL (0.6-1.3) Estimated GFR 24.34 mL/min Estimated GFR- 29.50 mL/min Note: Persistent reduction over 3 months in eGFR<60 mL/min/1.73 m2 defines CKD. Patients with eGFR values>=60 mL/min/1.73 m2 may also have CKD if evidence ofpersistent proteinuria. Additional information may be foundat www.kidney.org. SODIUM 139 mmol/L (136-145) POTASSIUM 5.2 H mmol/L (3.5-5.1) CHLORIDE 104 mmol/L (98-107) CARBON DIOXIDE 24 mmol/L (21-32) CALCIUM 8.5 mg/dL (8.5-10.1) TOTAL PROTEIN 7.3 g/dL (6.4-8.2) ALBUMIN 3.1 L g/dL (3.3-5.0) BILIRUBIN, TOTAL 0.4 mg/dL (0.0-1.0) ALKALINE PHOSPHATASE 115 U/L (46-116) AST (SGOT) 59 H U/L (15-37) ALT (SGPT) 25 U/L (12-78) MAGNESIUM 1.4 L mg/dL (1.8-2.4) CK-MB 5.7 H ng/mL (0.5-3.2) . PROGRESS AND PROCEDURES Course of Care: 23:30 09/09/16. D dimer is positive . Glucose is 44. She is taking her meds incorrectly and does not have access to her night time home O2, CHF 08:07 09/10/16. Pt has CRF and we cannot do a CTA, I cannot admit the patient here, there are no beds. 01:02 09/10/16. accepted by Elizabeth WEBBER and Dr Foss of [facility] Problems now Sudden worsening of SOB and weakness with elevated D dimer and poor renal function - Lovenox now and Lung Scan COPD exacerbation with Influenza A Hypoglycemia 44. Treated with food and D 50 Medical non compliance - pt's family is working with patient but I do not think she can manage her own somewhat complex medical needs living alone. Disposition: Transferred. CLINICAL IMPRESSION ACUTE DYSPNEA WITH ELEVATED D DIMER RENAL INSUFFICIENCY COPD EXACERBATION INFLUENZA A DIABETES WITH POOR CONTROL /HYPOGLYCEMIA ELEVATED CK WITH NEGATIVE TROPONIN MEDICAL NON-COMPLIANCE. (Electronically signed by Herrera Oconnor MD 09/10/2016 8:16)
--- NOTE | 2016-09-10 02:27 | ED ORDER SUMMARY ---
..... Patient: CORNELIA CARTER [facility] Visit[facility]: [id number] [place] [address] 75y, F Registration Date/Time: 09/09/2016 ORDER SHEET Weight: 63.5 kg (stated) Allergies: Bee Venom, Calcium Channel Blockers, Keflex, Norvasc, PredniSONE GENERAL ORDERS: Chest 1V Urgent (21:45 09/09/2016 Mahi BOSE) (Ack 21:46 TBergley) (23:33 TLewis R.N.) Salvage Inspector [employer] (Continuous) (:45 09/09/2016 Mahi BOSE) (Ack 21:46 TBergley) (21:55 TLewis R.N.) Cardiac Panel Stat (:45 09/09/2016 Mahi BOSE) (Ack 21:46 TBergley) (22:12 TLewis R.N.) BNP Urgent (:45 09/09/2016 Mahi BOSE) (Ack 21:46 TBergley) (22:12 TLewis R.N.) D-Dimer Urgent (:45 09/09/2016 Mahi BOSE) (Ack 21:46 TBergley) (22:12 TLewis R.N.) Oxygen (2 L/min) (NC) (:45 09/09/2016 Mahi BOSE) (Ack 21:46 TBergley) (21:55 TLewis R.N.) Pulse oximeter (:45 09/09/2016 Mahi BOSE) (Ack 21:46 TBergley) (21:55 TLewis R.N.) EKG - ER Stat (:45 09/09/2016 Mahi BOSE) (Ack 21:46 TBergley) (22:11 TBergley) CTA Thorax w Cont (Yes) (see chart) Urgent (23:30 09/09/2016 Mahi BOSE) (23:33 TLewis R.N.) - (SNACK) (23:32 09/09/2016 Mahi BOSE) (23:33 TLewis R.N.) PT with INR Urgent (00:40 09/10/2016 Mahi BOSE) (Ack 0:41 Josemanuel ER Gift Manager) (1:05 TLewis R.N.) MEDICATION ORDERS: Albuterol Neb Tx 2 unit doses (NOW, HHN) (21:46 09/09/2016 Mahi BOSE) (22:23 TLewis R.N.) Lovenox Subcut 60 mg (NOW) (01:03 09/10/2016 aMhi BOSE) (1:10 Srinivasawis R.N.) IV FLUIDS: IV Saline Lock (21:45 09/09/2016 Mahi BOSE) (22:13 River R.N.) Solu-MEDROL IV 125 mg (NOW) (21:46 09/09/2016 Mahi BOSE) (22:13 Srinivasawiperlita R.N.) D-50 IV 25 gm (NOW) (23:31 09/09/2016 Mahi BOSE) (23:40 TLewiperlita R.N.) Lasix IV 20 mg (NOW) (23:33 09/09/2016 Mahi BOSE) (23:40 TLewis R.N.) ORDER SHEET NOTES: [Electronically signed by Jeff Delgado R.N. (02:09/10/2016)] [Electronically locked/signed by Jeff Delgado R.N. (:09/10/2016)]
--- NOTE | 2016-09-10 02:27 | ED ORDER SUMMARY ---
..... Patient: CORNELIA CARTER OrderSheet [facility] VisitID: [id number] [place] [address] 75y, F Registration Date/Time: 09/09/2016 ORDER SHEET Weight: 63.5 kg (stated) Allergies: Bee Venom, Calcium Channel Blockers, Keflex, Norvasc, PredniSONE GENERAL ORDERS: Chest 1V Urgent (21:45 09/09/2016 Mahi BOSE) (Ack 21:46 TBergley) (23:33 TLewis R.N.) Palliative Nurse (Continuous) (:45 09/09/2016 Mahi BOSE) (Ack 21:46 TBergley) (21:55 TLewis R.N.) Cardiac Panel Stat (:45 09/09/2016 Mahi BOSE) (Ack 21:46 TBergley) (22:12 TLewis R.N.) BNP Urgent (:45 09/09/2016 Mahi BOSE) (Ack 21:46 TBergley) (22:12 TLewis R.N.) D-Dimer Urgent (:45 09/09/2016 Mahi BOSE) (Ack 21:46 TBergley) (22:12 TLewis R.N.) Oxygen (2 L/min) (NC) (:45 09/09/2016 Mahi BOSE) (Ack 21:46 TBergley) (21:55 TLewis R.N.) Pulse oximeter (:45 09/09/2016 Mahi BOSE) (Ack 21:46 TBergley) (21:55 TLewis R.N.) EKG - ER Stat (:45 09/09/2016 Mahi BOSE) (Ack 21:46 TBergley) (22:11 TBergley) CTA Thorax w Cont (Yes) (see chart) Urgent (23:30 09/09/2016 Mahi BOSE) (23:33 TLewis R.N.) - (SNACK) (23:32 09/09/2016 Mahi BOSE) (23:33 TLewis R.N.) PT with INR Urgent (00:40 09/10/2016 Mahi BOSE) (Ack 0:41 Josemanuel ER Pluck Separator) (1:05 TLewis R.N.) MEDICATION ORDERS: Albuterol Neb Tx 2 unit doses (NOW, HHN) (21:46 09/09/2016 Mahi BOSE) (22:23 TLewis R.N.) Lovenox Subcut 60 mg (NOW) (01:03 09/10/2016 Mahi BOSE) (1:10 Srinivasawis R.N.) IV FLUIDS: IV Saline Lock (21:45 09/09/2016 Mahi BOSE) (22:13 River R.N.) Solu-MEDROL IV 125 mg (NOW) (21:46 09/09/2016 Mahi BOSE) (22:13 Srinivasawiperlita R.N.) D-50 IV 25 gm (NOW) (23:31 09/09/2016 Mahi BOSE) (23:40 TLewiperlita R.N.) Lasix IV 20 mg (NOW) (23:33 09/09/2016 Mahi BOSE) (23:40 TLewis R.N.) ORDER SHEET NOTES: [Electronically signed by Jeff Delgado R.N. (02:09/10/2016)] [Electronically locked/signed by Jeff Delgado R.N. (:09/10/2016)]
--- NOTE | 2016-09-10 02:27 | ED NURSING NOTES ---
Clinical Report - Nurses [facility] [address] [place] [address] 09/09/2016 20:44 Patient: CORNELIA CARTER TRIAGE Triage time 20:53. Acuity: LEVEL 3. Chief Complaint: COUGH and (sob). ( Pt stated she was 140, but looks around 200.). --20:58 Jeff Delgado R.N. 20:53 09/09/16. BP: 146/89. HR: 80. RR: 26. O2 saturation: 95%. Pain level now 5/10. --20:58 Jeff Delgado R.N. Weight: 63.5 kg stated. Height/Length: 64 inches Per Patient. BMI: 24. --20:57 Jeff Delgado R.N. Medications Albuterol Sulfate Inhalation. Asmanex 120 Metered Doses Inhalation. Aspirin Oral (Tablet 81 mg) 1 tablet, daily. Atorvastatin Calcium Oral 20 mg, at bedtime. CloNIDine HCl Oral 0.2 mg, 2x a day. Glimepiride Oral (Tablet 4 mg) 1 tablet, qam. Isosorbide Mononitrate ER Oral (Tablet Extended Release 24 Hour 30 mg) 1 tablet, daily. --20:55 Jeff Delgado R.N. Lantus Subcutaneous 30 units, 20 in the AM (and 20 in the AM). Lasix 40 mg qod. Lisinopril Oral (Tablet 20 mg) 1 tablet, at bedtime. Metoprolol Tartrate Oral 50 mg x 2 tabs, TID. Omeprazole Oral 30mg , daily. Oxygen 2L/nc at night. Pramipexole Dihydrochloride Oral 0.25 mg, 3x a day. TraZODone HCl Oral 50 mg, at bedtime. --20:55 Jeff Delgado R.N. Allergies Bee Venom. Definite Severe(swelling) Calcium Channel Blockers. Keflex. Definite Severe(SOB, swelling) Norvasc. Definite Severe(swelling) PredniSONE. Definite Moderate(swelling) --20:55 Jeff Delgado R.N. History Arrived by private vehicle. Historian: patient. Unaccompanied. ( Pt was seen here yesterday, per pt and was diagnosed with the flu. Pt was given a 5 day supply of antibiotics. Pt was suppose to have home oxygen, but is in the process of moving.). She has had chest congestion and difficulty breathing. ( Pt is having pain on the right side of the lower ribs, due to the coughing.). 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 PAST MEDICAL HX: Immunizations: up-to-date. Denies current . SOCIAL HX: Former smoker. No alcohol use or drug use. --20:58 Jeff Delgado R.N. PROBLEMS: Bronchitis. Hypertensive Headache. Heart Disease. Hypomagnesemia. Dehydration. Hypotension. Angioedema. Oral Anticoagulation Therapy. Pneumonia. Pancreatitis. Immunizations. COPD - Chronic Obstructive Pulmonary Disease. Upper Extremity Pain. Diabetes Mellitus. Hypertension. Atrial Fibrillation. --20:56 Jeff Delgado R.N. Interventions ID band on patient. To treatment room. --20:58 Jeff Delgado R.N. PHYSICAL ASSESSMENT GENERAL / NEURO / PSYCH: Alert. Oriented X 4. Appears anxious. HEENT: Pupils equal, round and reactive to light. Ears within normal limits. Nares within normal limits. Mouth within normal limits upon inspection. Pharynx within normal limits. Voice within normal limits. Mucous membranes are pink. RESPIRATORY: Moderate respiratory distress. The patient can speak in full sentences. Decreased breath sounds right lung. Nonproductive cough. ( pt is 95% on room air.). CVS: Normal sinus rhythm noted. Capillary refill less than 2 seconds. SKIN: Skin is warm and dry. Normal skin turgor. --20:59 Jeff Delgado R.N. NURSING PROGRESS NOTES The plan of care for this patient has been created. Pulse oximeter and NIBP monitor placed on patient. Patient gowned. Head of bed elevated. --20:59 Jeff Delgado R.N. 22:12 09/09/2016 Site #1 started via IV in the right hand with an 20g angiocath, with aseptic technique and good blood return; one attempt. Blood drawn: rainbow set. Labeled in the presence of the patient and sent to the lab. Saline lock flushed with 10 mL saline. --22:12 Jeff Delgado R.N. 22:02 09/09/16. BP: 95/58. HR: 78. RR: 20. O2 saturation: 97%. Pain level now 0/10. --22:12 Jeff Delgado R.N. military police officer, pulse oximeter and NIBP monitor placed on patient; typewriter assembler- Lead II; monitor alarms on. --22:12 Jeff Delgado R.N. 22:13 09/09/2016 SOLU-MEDROL (MethylPREDNISolone Sodium Succ) IVP 125 mg given over 1 minute(s) via site #1. Allergies verified and confirmed 5 rights. IV patency established. IV site checked: no pain, redness, or swelling. IV flushed thoroughly pre- and post-medication administration. IVP given by RN. --22:13 Jeff Delgado R.N. EKG time: (2204). EKG was ordered, performed by a tech and shown to the ED physician. --22:15 Romeo Rodriguez, ER Paramedical Aide 22:23 09/09/2016 Albuterol Neb TX. Given by the respiratory therapist. Allergies verified and confirmed 5 rights. --22:23 Jeff Delgado R.N. ( Granddaughter was called in to go over the pt's medications. MD stated she does not know how to talk her prescribed meds and wants to show family the right way.). --22:27 Jeff Delgado R.N. <<STRICKEN ENTRY-- 22:34 09/09/16. Care transferred and report received (from LAWANDA Johnson). --22:34 Miriam Reyes R.N. --END STRIKE>> Charted On Wrong Patient --23:25 Miriam Reyes R.N. ( Daughter at bedside and the MD did talk to the daughter about her medications.). --23:27 Jeff Delgado R.N. BS 44. Critical value read back. Verified lab result and patient ID. --23:28 Jeff Delgado R.N. ( MD was in the room and told about the BS of 44. Pt was given a snack.). --23:33 Jeff Delgado R.N. 23:40 09/09/2016 D-50 IVP 25 gm given over 2 minute(s) via site #1. Allergies verified and confirmed 5 rights. IV patency established. IV site checked: no pain, redness, or swelling. IV flushed thoroughly pre- and post-medication administration. IVP given by RN. --23:40 Jeff Delgado R.N. 23:40 09/09/2016 Lasix IVP 20 mg given over 2 minute(s) via site #1. Allergies verified and confirmed 5 rights. IV patency established. IV site checked: no pain, redness, or swelling. IV flushed thoroughly pre- and post-medication administration. IVP given by RN. --23:40 Jeff Delgado R.N. ( Pt took herself of the monitor and does not want her vs taken again. She is ready to leave. Daughter gave verbal understanding of her medications. Pt is no longer having sob and is eating a sandwich.). --23:47 Jeff Delgado R.N. ( Pt refused the CTA, informed MD.). --00:04 Jeff Delgado R.N. ( 1248: Finger stick Glucose 161 mg/dL). --00:58 Enma Heck 01:01 09/10/16. BP: 150/74. HR: 90. RR: 20. O2 saturation: 93%. Pain level now 0/10. --01:02 Jeff Delgado R.N. 01:10 09/10/2016 Lovenox (Enoxaparin Sodium) Subcutaneous 60 mg given. Given in the left abdomen. Allergies verified and confirmed 5 rights. --01:10 Jeff Delgado R.N. DISPOSITION / DISCHARGE Departure time: 02:25. Condition at departure: improved. ( Report was given to Cira Barillas RN. Pt was transported with [facility] by ALS unit. Pt was going to room 2016 CCU bed. Pt was placed on the typewriter assembler.). The patient left the Emergency Department via ambulance and ([place]). Transferred to [facility]. --02:26 Jeff Delgado R.N. ( 20g IV was left in place.). --02:26 Jeff Delgado R.N. Locked/Released at 09/10/2016 2:26 by Jeff Delgado R.N.
--- NOTE | 2016-09-10 08:17 | ED MAR SUMMARY ---
..... Medication Administration Record [facility] [address] [place] [address] Patient: CORNELIA CARTER Visit ID: [id number] 75y, F Weight: 63.5 kg Height/Length: 64 in BMI: 24 ALLERGIES: Bee Venom, Calcium Channel Blockers, Keflex, Norvasc, PredniSONE Given 22:09/09/2016 Jeff Delgado R.N. Medication Administered: SOLU-MEDROL [IVP] (METHYLPREDNISOLONE SODIUM SUCC), Dose: 125 mg IVP over 1 minute(s), Site: #1 right hand. Medication Ordered: Solu-MEDROL IV 125 mg (NOW). Given :09/09/2016 Jeff Delgado R.N. Medication Administered: ALBUTEROL [NEB TX], Dose: Neb TX. Medication Ordered: Albuterol Neb Tx 2 unit doses (NOW, N). Given :09/09/2016 Jeff Delgado R.N. Medication Administered: D-50 [IVP], Dose: 25 gm IVP over 2 minute(s), Site: #1 right hand. Medication Ordered: D-50 IV 25 gm (NOW). Given 23:09/09/2016 Jeff Delgado R.N. Medication Administered: LASIX [IVP], Dose: 20 mg IVP over 2 minute(s), Site: #1 right hand. Medication Ordered: Lasix IV 20 mg (NOW). Given 01:09/10/2016 Jeff Delgado R.N. Medication Administered: LOVENOX [SUBCUTANEOUS] (ENOXAPARIN SODIUM), Dose: 60 mg Subcutaneous. Medication Ordered: Lovenox Subcut 60 mg (NOW).
--- NOTE | 2016-09-10 08:17 | ED MED RECONCILIATION SUMMARY ---
Patient: CORNELIA CARTER Medication Reconciliation Report [facility] VisitID: [id number] [address] [place] [address] 75y, F Registration Date/Time: 09/09/2016 Weight: 63.5 kg Height/Length: 64 in. BMI: 24.0 ALLERGIES: Bee Venom, Calcium Channel Blockers, Keflex, Norvasc, PredniSONE The patient's Home Medications are listed below: THE FOLLOWING MEDICATIONS NEED TO BE RECONCILED: Albuterol Sulfate Inhalation Asmanex 120 Metered Doses Inhalation Aspirin Oral (81 mg) 1 tablet, daily Atorvastatin Calcium Oral 20 mg, at bedtime CloNIDine HCl Oral 0.2 mg, 2x a day Glimepiride Oral (4 mg) 1 tablet, qam Isosorbide Mononitrate ER Oral (30 mg) 1 tablet, daily Lantus Subcutaneous 30 units, 20 in the AM, and 20 in the AM Lasix 40 mg qod Lisinopril Oral (20 mg) 1 tablet, at bedtime Metoprolol Tartrate Oral 50 mg x 2 tabs, TID Omeprazole Oral 30mg , daily Oxygen 2L/nc at night Pramipexole Dihydrochloride Oral 0.25 mg, 3x a day TraZODone HCl Oral 50 mg, at bedtime The source(s) of the original Home Medication information: Not obtained. The following Medications were given to the patient in the Emergency Department: SOLU-MEDROL [IVP] IVP 125 mg, administered: 09/09/2016 10:13:00 PM Albuterol [Neb Tx] Neb TX, administered: 09/09/2016 10:23:00 PM D-50 [IVP] IVP 25 gm, administered: 09/09/2016 11:40:00 PM Lasix [IVP] IVP 20 mg, administered: 09/09/2016 11:40:00 PM Lovenox [Subcutaneous] Subcutaneous 60 mg, administered: 09/10/2016 1:10:00 AM The following Medications were prescribed to the patient: None.
--- NOTE | 2016-09-10 08:17 | ED DISCHARGE INSTRUCTIONS ---
Patient: CORNELIA CARTER General Instructions [facility] VisitID: [id number] [address] [place] [address] 75y, F Registration Date/Time: 09/09/2016 ACUTE DYSPNEA WITH ELEVATED D DIMER RENAL INSUFFICIENCY COPD EXACERBATION INFLUENZA A DIABETES WITH POOR CONTROL /HYPOGLYCEMIA ELEVATED CK WITH NEGATIVE TROPONIN MEDICAL NON-COMPLIANCE. (Electronically signed by Herrera Oconnor MD 09/10/2016 8:16)
--- NOTE | 2016-09-10 08:17 | ED DISCHARGE INSTRUCTIONS ---
Patient: CORNELIA CARTER General Instructions [facility] VisitID: [id number] [address] [place] [address] 75y, F Registration Date/Time: 09/09/2016 ACUTE DYSPNEA WITH ELEVATED D DIMER RENAL INSUFFICIENCY COPD EXACERBATION INFLUENZA A DIABETES WITH POOR CONTROL /HYPOGLYCEMIA ELEVATED CK WITH NEGATIVE TROPONIN MEDICAL NON-COMPLIANCE. (Electronically signed by Herrera Oconnor MD 09/10/2016 8:16)
--- NOTE | 2016-09-10 08:17 | ED MED RECONCILIATION SUMMARY ---
Patient: CORNELIA CARTER Medication Reconciliation Report [facility] VisitID: [id number] [address] [place] [address] 75y, F Registration Date/Time: 09/09/2016 Weight: 63.5 kg Height/Length: 64 in. BMI: 24.0 ALLERGIES: Bee Venom, Calcium Channel Blockers, Keflex, Norvasc, PredniSONE The patient's Home Medications are listed below: THE FOLLOWING MEDICATIONS NEED TO BE RECONCILED: Albuterol Sulfate Inhalation Asmanex 120 Metered Doses Inhalation Aspirin Oral (81 mg) 1 tablet, daily Atorvastatin Calcium Oral 20 mg, at bedtime CloNIDine HCl Oral 0.2 mg, 2x a day Glimepiride Oral (4 mg) 1 tablet, qam Isosorbide Mononitrate ER Oral (30 mg) 1 tablet, daily Lantus Subcutaneous 30 units, 20 in the AM, and 20 in the AM Lasix 40 mg qod Lisinopril Oral (20 mg) 1 tablet, at bedtime Metoprolol Tartrate Oral 50 mg x 2 tabs, TID Omeprazole Oral 30mg , daily Oxygen 2L/nc at night Pramipexole Dihydrochloride Oral 0.25 mg, 3x a day TraZODone HCl Oral 50 mg, at bedtime The source(s) of the original Home Medication information: Not obtained. The following Medications were given to the patient in the Emergency Department: SOLU-MEDROL [IVP] IVP 125 mg, administered: 09/09/2016 10:13:00 PM Albuterol [Neb Tx] Neb TX, administered: 09/09/2016 10:23:00 PM D-50 [IVP] IVP 25 gm, administered: 09/09/2016 11:40:00 PM Lasix [IVP] IVP 20 mg, administered: 09/09/2016 11:40:00 PM Lovenox [Subcutaneous] Subcutaneous 60 mg, administered: 09/10/2016 1:10:00 AM The following Medications were prescribed to the patient: None.
--- NOTE | 2016-09-10 08:17 | ED MAR SUMMARY ---
..... Medication Administration Record Merged With [facility] [address] [place] [address] Patient: CORNELIA CARTER Visit ID: [id number] 75y, F Weight: 63.5 kg Height/Length: 64 in BMI: 24 ALLERGIES: Bee Venom, Calcium Channel Blockers, Keflex, Norvasc, PredniSONE Given 22:09/09/2016 Jeff Delgado R.N. Medication Administered: SOLU-MEDROL [IVP] (METHYLPREDNISOLONE SODIUM SUCC), Dose: 125 mg IVP over 1 minute(s), Site: #1 right hand. Medication Ordered: Solu-MEDROL IV 125 mg (NOW). Given :09/09/2016 Jeff Delgado R.N. Medication Administered: ALBUTEROL [NEB TX], Dose: Neb TX. Medication Ordered: Albuterol Neb Tx 2 unit doses (NOW, N). Given :09/09/2016 Jeff Delgado R.N. Medication Administered: D-50 [IVP], Dose: 25 gm IVP over 2 minute(s), Site: #1 right hand. Medication Ordered: D-50 IV 25 gm (NOW). Given 23:09/09/2016 Jeff Delgado R.N. Medication Administered: LASIX [IVP], Dose: 20 mg IVP over 2 minute(s), Site: #1 right hand. Medication Ordered: Lasix IV 20 mg (NOW). Given 01:09/10/2016 Jeff Delgado R.N. Medication Administered: LOVENOX [SUBCUTANEOUS] (ENOXAPARIN SODIUM), Dose: 60 mg Subcutaneous. Medication Ordered: Lovenox Subcut 60 mg (NOW).
== END 2016-09-10 02:25 | disposition short-term general hospital (02) ==
LOC: ED SRH 20:45
DX: J44.1 Chronic obstructive pulmonary disease with (acute) exacerbation (principal); J11.1 Influenza due to unidentified influenza virus with other respiratory manifestations; E11.22 Type 2 diabetes mellitus with diabetic chronic kidney disease; I12.9 Hypertensive chronic kidney disease with stage 1 through stage 4 chronic kidney disease, or unspecified chronic kidney disease; N18.3 Chronic kidney disease, stage 3 (moderate); E11.649 Type 2 diabetes mellitus with hypoglycemia without coma; Z91.19 Patient's noncompliance with other medical treatment and regimen; R79.89 Other specified abnormal findings of blood chemistry; Z87.891 Personal history of nicotine dependence; Z79.4 Long term (current) use of insulin
CPT/HCPCS: 90100; 90616; 90617; 91320; 91556; 92610; 92720; 94060; 95059